=== PATIENT | female | born 1955 | race Caucasian/White ===

== ENCOUNTER → 2016-11-19 | Outpatient (CLI) | payer BC, OTHER ==
--- NOTE | 2016-11-19 15:09 | RAD ---
Radionuclide bone scan, 11/19/2016: History: Back, feet and knee pain Whole body imaging was performed following IV injection of 26.2 mCi of technetium 99m MDP. No previous bone scan is available at this time for comparison purposes. The following findings are delineated: 1. There is a photon deficient area at the right knee compatible with the presence of a knee prosthesis. There is adjacent increased activity in the patella and along the margins of the knee prosthesis, compatible with the history of recent surgery. 2. There is markedly increased activity at the mid foot level bilaterally compatible with arthritic change evident on prior radiographs. 3. Mildly increased activity at the left patellar level is compatible with patellofemoral arthritis evident on previous knee radiographs. 4. Symmetrical increased activity at both wrists and AC joint levels is presumably arthritic in nature. 5. There is only minimally increased activity in the lower lumbar spine at the L4-5 level, likely arthritic in nature. 6. No other bone scan abnormality is detected.
== END | disposition home or self-care (01) ==
LOC: NM 07:58
PROVIDERS: ATTEND Family Medicine
DX: M25.562 Pain in left knee (principal); M79.673 Pain in unspecified foot
CPT/HCPCS: 78306; 96374; A9503

== ENCOUNTER → 2016-12-18 | Outpatient (CLI) | payer BC ==
--- NOTE | 2016-12-18 15:02 | RAD ---
Indication bilateral foot pain. Abnormal physical exam. Grayscale color Doppler and spectral imaging was performed. The examination was targeted to the arteries of the lower extremities. Ankle-brachial indices were also generated. The right and left ankle-brachial indices are 1 and 1.1 respectively. These values are normal. On the right there is a normal triphasic waveform seen associated with the common femoral artery. Similar waveform is seen in the deep femoral. A normal triphasic waveform is seen throughout the course of the superficial femoral artery. A similar normal triphasic waveform is seen in the popliteal artery. There is a monophasic waveform associated with the anterior tibial artery and a triphasic waveform associated with the posterior tibial artery. Biphasic to triphasic waveform is seen associated with the posterior tibial. A normal triphasic waveform is seen involving the peroneal artery. On the left there is normal triphasic waveform seen associated with the common femoral artery and a biphasic waveform in the deep femoral. A normal triphasic waveform is seen throughout the course of the superficial femoral artery. A normal triphasic waveform is seen in the popliteal artery. There is a biphasic waveform associated with the anterior tibial artery. Posterior tibial artery is triphasic proximally and distally. The peroneal artery demonstrates a normal triphasic waveform. The dorsal pedal artery is also triphasic. IMPRESSION: No evidence of high-grade or significant arterial disease involving the major arteries of the lower extremities
== END | disposition home or self-care (01) ==
LOC: US 13:36
PROVIDERS: ATTEND Internal Medicine
DX: M79.671 Pain in right foot (principal); M79.672 Pain in left foot
CPT/HCPCS: 93922; 93923

== ENCOUNTER → 2019-02-28 | Outpatient (CLI) | payer BC ==
--- NOTE | 2019-02-28 16:55 | RAD ---
Examination: 3 views of the bilateral knees HISTORY: History of bilateral knee pain COMPARISON: Left knee radiograph from 04/27/2016 Findings/ impression: Bilateral total knee arthroplasty changes in normal alignment. Small knee joint effusion.Small calcific densities identified in the bilateral knee joints could be soft tissue calcifications or loose bodies. Consider CT for further evaluation. Electronically signed by: Uday Conner MD (02/28/2019 4:52 PM) [facility]
== END | disposition home or self-care (01) ==
LOC: DXRAD 13:35
PROVIDERS: ATTEND Orthopaedic Surgery Sports Medicine
DX: M25.462 Effusion, left knee (principal); M25.461 Effusion, right knee; Z96.653 Presence of artificial knee joint, bilateral
CPT/HCPCS: 73562

== ENCOUNTER → 2020-04-12 | Outpatient (CLI) | payer BC ==
--- NOTE | 2020-04-16 09:52 | RAD ---
DATE: 04/12/2020 10:04 AM EXAM: MAMMO SAM SCREENING BILATERAL HISTORY: Screening COMPARISON: 09/16/2018, 05/03/2017 Bilateral CC and MLO views of the breasts were performed. Bilateral breast tomosynthesis was performed in CC and MLO projections. This study was interpreted with the benefit of Computerized Aided Detection (CAD). FINDINGS: Breast Density: SCATTERED The breast parenchyma shows scattered fibroglandular densities. Breast parenchyma level B No suspicious masses, microcalcifications or architectural distortion is present to suggest malignancy in either breast. The visualized axillae are unremarkable. IMPRESSION: No mammographic evidence of malignancy. BI-RADS CATEGORY: 1 NEGATIVE RECOMMENDED FOLLOW-UP: 12M 12 MONTH FOLLOW-UP Annual screening mammography is recommended, unless clinically indicated sooner based on symptoms or change in physical exam. PQRS compliance statement: Patient information was entered into a reminder system with a target due date for the next mammogram. Mammography is a sensitive method for finding small breast cancers, but it does not detect them all and is not a substitute for careful clinical examination. A negative mammogram does not negate a clinically suspicious finding and should not result in delay in biopsying a clinically suspicious abnormality. "Our facility is accredited by the [employer] Mammography Program."
== END | disposition home or self-care (01) ==
LOC: MAMMO 09:52
PROVIDERS: ATTEND Internal Medicine
DX: Z12.31 Encounter for screening mammogram for malignant neoplasm of breast (principal)
CPT/HCPCS: 77063; 77067